=== PATIENT | male | born 1970 | race Caucasian/White ===

== ENCOUNTER 2021-09-25 16:35 | Inpatient (IN) | payer OTHER, SELFPAY ==
[~2021-09-25] VITALS: Ht 167.6 cm; Wt 94.8 kg
[2021-09-25 16:45] VITALS: BP_SYST 149
--- NOTE | 2021-09-25 16:45 | NUR ---
pt. bib ACLS placed on gurney in tent, called 911, pt. is covid + has been seen at [facility] stated called 911 because he keeps having coughing spells and then feels SOB, on EMS arrival O2 sat was 88% on RA, pt arrived with 4L/NC and sat 95%
--- NOTE | 2021-09-25 18:10 | NUR ---
phone update to pts. Mar[facility], pt, could not remember his home med. for HTN. confirmed with takes losartan 50 mg daily
[2021-09-25] MEDS ORDERED: LOSA50TA3 PO (18:30)
--- NOTE | 2021-09-25 18:30 | NUR ---
Medication reconciliation completed with information provided by [facility] patients . Any prior medication reconciliation on file was reviewed and corrected.
--- NOTE | 2021-09-25 18:40 | NUR ---
pt. sat. decreased to 89% post coughing, RR 30, remains on 4L/NC., pt. moved to bed 8, remains hypertensive Dr. Calderon aware, pt. denies pain
--- NOTE | 2021-09-25 18:54 | NUR ---
called RT to come start HIFLO O2 per Dr. Calderon
[2021-09-25 19:21] LABS: CALCIUM 9.3 mg/dL (8.4-11.0); CREATININE 1.72 mg/dL (0.55-1.30); POTASSIUM 3.8 mmol/L (3.5-5.1)
[2021-09-25 19:31] LABS: BASOPHILS % (AUTO) 0.2 % (0.0-2.0); EOSINOPHILS % (AUTO) 0.2 % (0.0-4.0); HEMATOCRIT 57.1 % (36-54); HEMOGLOBIN 18.7 g/dL (14.0-18.0); LYMPHOCYTES # (AUTO) 1.2 K/uL (1.0-5.5); LYMPHOCYTES % (AUTO) 9.7 % (20.5-51.5); MEAN CORPUSCULAR HEMOGLOBIN 30 pg (27-31); MEAN CORPUSCULAR HGB CONC 33 % (32-36); MEAN CORPUSCULAR VOLUME 90 fL (79.0-98.0); MONOCYTES # (AUTO) 0.6 K/uL (0.0-1.0); MONOCYTES % (AUTO) 5.2 % (1.7-9.3); NEUTROPHILS # (AUTO) 10.1 K/uL (1.8-7.7); NEUTROPHILS % (AUTO) 84.7 % (40.0-70.0); PLATELET COUNT (AUTO) 357 K/uL (130-430); RED BLOOD CELL COUNT(AUTO) 6.33 MIL/uL (4.2-6.2); RED CELL DISTRIBUTION WIDTH 13.4 % (9.0-15.0); WHITE BLOOD COUNT (AUTO) 11.9 K/uL (4.8-10.8)
[2021-09-25 19:33] LABS: TOTAL BILIRUBIN 0.6 mg/dL (0.0-1.0)
[2021-09-25 19:36] LABS: INR 0.9 (0.80-1.20); PROTHROMBIN TIME 10.1 SECS (9.5-12.5)
[2021-09-25] MEDS ORDERED: NACL 0.9% 2,000 ML IV ONE (19:45)
[2021-09-25 19:57] LABS: CKMB RELATIVE INDEX 0.7 (0.0-2.9)
--- NOTE | 2021-09-25 20:00 | NUR ---
covid charity swab done at bedside and sent to lab
[2021-09-25] MEDS ORDERED: ONDANSETRON HCL 4 MG/2 ML VIAL IVP ONE (20:15)
[2021-09-25] MEDS ORDERED: ONDANSETRON HCL 4 MG/2 ML VIAL ONE (20:18)
--- NOTE | 2021-09-25 20:43 | NUR ---
Patient will be admitted to care of DR CHARLTON. Admitted to TELE unit. Will go to room TBD. Belongings list completed. Complete and up to date summary report printed. SBAR report to be given at bedside with opportunity for questions.
[2021-09-25] MEDS ORDERED: NACL 0.9% 1,000 ML IV ONE (20:45)
[2021-09-25] MEDS ORDERED: AZITHROMYCIN 250 MG TABLET PO ONE (20:45)
[2021-09-25 20:49] LABS: BILIRUBIN,URINE NEGATIVE (NEGATIVE); COLOR,URINE YELLOW (YELLOW); GLUCOSE,URINE NEGATIVE (NEGATIVE); KETONES,URINE NEGATIVE (NEGATIVE); LEUKOCYTE ESTERASE ,URINE NEGATIVE (NEGATIVE); NITRITE, URINE NEGATIVE (NEGATIVE); PH,URINE 5.5 (5.0-8.0); PROTEIN URINE 2+ (NEGATIVE); UROBILINOGEN,URINE 0.2 (0.2-1.0)
[2021-09-25] MEDS ORDERED: ONDANSETRON HCL 4 MG/2 ML VIAL IVP PRN (21:00)
[2021-09-25] MEDS ORDERED: NALOXONE HCL 0.4 MG/ML AMP (NARCAN) IVP PRN ×2 (21:00)
[2021-09-25] MEDS ORDERED: ZOLPIDEM TARTRATE 5 MG TABLET PO PRN (21:00)
[2021-09-25] MEDS ORDERED: MUPIROCIN 2% TOPICAL OINTMENT 22 GM NS PRN (21:00)
[2021-09-25] MEDS ORDERED: MORPHINE 2 MG/ML INJ. SYRINGE IVP PRN ×2 (21:00)
[2021-09-25] MEDS ORDERED: LORazepam 2 MG/ML VIAL IVP PRN (21:00)
[2021-09-25] MEDS ORDERED: POTASSIUM CHLORIDE 20 MEQ TAB.PRT.SR PO PRN (21:00)
[2021-09-25] MEDS ORDERED: MAGNESIUM SULFATE 50 ML IV PRN (21:00)
[2021-09-25] MEDS ORDERED: DOCUSATE SODIUM 100 MG CAPSULE PO PRN (21:00)
[2021-09-25] MEDS ORDERED: ACETAMINOPHEN 325 MG TABLET PO PRN (21:00)
[2021-09-25] MEDS: DECADRON 4 MG TABLET PO SCH (21:42)
[2021-09-25 21:52] LABS: BLOOD, URINE TRACE (NEGATIVE); CLARITY/URINE SLIGHTLY HAZY (CLEAR)
[2021-09-25 21:54] LABS: C-REACTIVE PROTEIN QUANT 35.6 mg/dL (0-0.5)
[2021-09-25 22:17] LABS: BACTERIA,URINE FEW /HPF (None Seen); MUCUS,URINE None Seen /LPF (None Seen); OTHER CASTS, URINE WBC CASTS 1+ /LPF (None Seen)
--- NOTE | 2021-09-25 23:10 | NUR ---
bedside commode provided, pass stool and patient stated feeling better.
--- NOTE | 2021-09-26 00:09 | NUR ---
rounding done, awake in bed, denies any discomfort at this time, needs attended, will continue to monitor.
[2021-09-26] MEDS: NACL 0.9% 1,000 ML IV SCH ×3 (00:22→17:00)
[2021-09-26] MEDS: METOPROLOL TARTRATE 25 MG TABLET PO SCH ×3 (01:11→20:53)
--- NOTE | 2021-09-26 02:12 | NUR ---
ADMISSION NOTE Received patient from ER via jimenez, received report from [facility]. Patient admitted with diagnosis of covid pneumonia. Patient oriented to hospital routine, call light, toileting and safety-patient verbalized understanding.
--- NOTE | 2021-09-26 02:20 | NUR ---
admitted to room 119b, handover given to stefanie mathew.
--- NOTE | 2021-09-26 02:49 | NUR ---
ADMISSION NOTE Received patient from ER via gurney. Patient admitted with diagnosis of COVID pna . Patient is awake, alert, oriented X . Patient oriented to hospital room, call light, toileting, pain management and safety-teach back done. Call light within reach.Procedures explained .
[2021-09-26 02:55] VITALS: BP_SYST 138
--- NOTE | 2021-09-26 03:47 | NUR ---
CONSULTATION CALLED: CALLED AND TALKED WITH ANKIT AND NOTIFIED ABOUT THE CONSULTATION WITH DR ALFARO
[2021-09-26 04:15] VITALS: BP_SYST 138
--- NOTE | 2021-09-26 07:04 | NUR ---
CONSULTATION PAGED REASON FOR CONSULTATION:COVID PNA WAS CONSULT CALLED?Y PERSON WHO WAS NOTIFIED:DOYLE CONSULTING PHYSICIAN:MARY ADAM SNUFF GRINDER SPECIALTY:PULMONARY SNUFF GRINDER PHONE NUMBER:[phone] [facility]
[2021-09-26 08:37] VITALS: BP_SYST 139
--- NOTE | 2021-09-26 08:37 | NUR ---
OPENING NOTE Received shift report from mold shifter RN. Patient AxOx4 and is resting in bed and respirations remain even and non-labored on 4 L NC. IV is patent and saline-locked. Bed locked in lowest position and call light is within reach. COVID precautions remain in place. Will continue to monitor. Addendum: 09/26/21 at 1357 by Laura Mcclure RN 25 L/min High flow nasal cannula.
[2021-09-26] MEDS ORDERED: AZITHROMYCIN 250 MG TABLET PO SCH (09:00)
[2021-09-26] MEDS ORDERED: ENOXAPARIN SODIUM 40 MG/0.4 ML SYRINGE SUBCUT SCH (09:00)
[2021-09-26 09:32] LABS: CALCIUM 8.4 mg/dL (8.4-11.0); CREATININE 1.09 mg/dL (0.55-1.30); POTASSIUM 4.2 mmol/L (3.5-5.1)
[2021-09-26 09:44] LABS: BASOPHILS % (AUTO) 0.2 % (0.0-2.0); HEMATOCRIT 46.6 % (36-54); HEMOGLOBIN 15.6 g/dL (14.0-18.0); LYMPHOCYTES # (AUTO) 0.9 K/uL (1.0-5.5); LYMPHOCYTES % (AUTO) 9.8 % (20.5-51.5); MEAN CORPUSCULAR HEMOGLOBIN 31 pg (27-31); MEAN CORPUSCULAR HGB CONC 33 % (32-36); MEAN CORPUSCULAR VOLUME 91 fL (79.0-98.0); MONOCYTES # (AUTO) 0.2 K/uL (0.0-1.0); MONOCYTES % (AUTO) 2.5 % (1.7-9.3); NEUTROPHILS # (AUTO) 8.4 K/uL (1.8-7.7); NEUTROPHILS % (AUTO) 87.5 % (40.0-70.0); PLATELET COUNT (AUTO) 333 K/uL (130-430); RED BLOOD CELL COUNT(AUTO) 5.11 MIL/uL (4.2-6.2); RED CELL DISTRIBUTION WIDTH 13.5 % (9.0-15.0); WHITE BLOOD COUNT (AUTO) 9.6 K/uL (4.8-10.8)
[2021-09-26 10:08] LABS: C-REACTIVE PROTEIN QUANT 23.2 mg/dL (0-0.5)
[2021-09-26] MEDS: CHOLECALCIFEROL (VITAMIN D3) 2,000 UNIT TABLET PO SCH (10:22)
[2021-09-26] MEDS: LOSARTAN POTASSIUM 50 MG TABLET (COZAAR) PO SCH (10:22)
[2021-09-26] MEDS: ASCORBIC ACID 500 MG TABLET PO SCH (10:23)
[2021-09-26] MEDS: cefTRIAXone 1 GM in D5W 50 ML IV SCH (10:23)
[2021-09-26 10:44] LABS: ERYTHROCYTE SEDIMENTATION RATE 69 MM/HR (0-15)
[2021-09-26] MEDS: AZITHROMYCIN 250 MG in NS 250 ML IV SCH (11:51)
[2021-09-26 12:00] VITALS: BP_SYST 133
--- NOTE | 2021-09-26 12:00 | NUR ---
ROUNDING Rounding on patient. No signs of pain/respiratory distress. Will continue to monitor.
--- NOTE | 2021-09-26 16:00 | NUR ---
PAIN MEDICATION Patient reported 9/10 pain. Gave pain medication per MD order. (see eMAR). Will continue to monitor.
[2021-09-26 16:29] VITALS: BP_SYST 124
--- NOTE | 2021-09-26 19:01 | NUR ---
CLOSING NOTE Patient AxOx4 currently eating dinner in bed and respirations remain even and non-labored on 25 L/min HFNC. Bed locked in lowest position and call light is within reach. COVID precautions remain in place. All needs met throughout shift. Will endorse to shift mgr RN.
[2021-09-26 20:00] VITALS: BP_SYST 136; BP_SYST 146
--- NOTE | 2021-09-26 20:00 | NUR ---
Received shift report from day shift RN. Patient AxOx4 and is resting in bed and respirations remain even and non-labored on 25L NC. 22g placed on patient left forarm, IV is patent ns 2100. pt vss, saturation in the low 90s. pt denies any pain, except when he takes deep breathes. lung sounds are diminished to mild rhonchi. Bed locked in lowest position and call light is within reach. COVID precautions remain in place. Will continue to monitor.
[2021-09-26] MEDS: DECADRON 4 MG TABLET PO SCH (20:53)
[2021-09-26] MEDS: BUDESONIDE 0.5 MG/2 ML AMPUL.NEB INH SCH (23:01)
[2021-09-27 01:59] VITALS: BP_SYST 146
--- NOTE | 2021-09-27 07:30 | NUR ---
RN OPENING NOTE REPORT WAS ENDORSED BY NIGHT NURSE. PATIENT IS AWAKE AND ALERT SITTING UP IN BED. NO COMPLAINTS AT THIS TIME. CALL LIGHT IS WITH HIM, EDUCATED TO USE FOR ASSISTANCE. NO OTHER NEEDS AT THIS TIME.
[2021-09-27 07:52] VITALS: BP_SYST 143
[2021-09-27] MEDS: BUDESONIDE 0.5 MG/2 ML AMPUL.NEB INH SCH ×2 (09:00→21:00)
[2021-09-27] MEDS ORDERED: ENOXAPARIN SODIUM 40 MG/0.4 ML SYRINGE SUBCUT ONE (10:00)
[2021-09-27] MEDS: cefTRIAXone 1 GM in D5W 50 ML IV SCH (10:00)
--- NOTE | 2021-09-27 10:00 | NUR ---
MEDICATION PATIENT SCHEDULED MEDICATION GIVEN PER ORDER. PATIENT IS AWAKE AND ALERT SITTING IN BED. LINEN CHANGED PER REQUESTED. PROVIDED WITH ICE WATER REQUESTED. PATIENT HAS ALL SAFETY PRECAUTIONS IN PLACE. NO OTHER NEEDS AT THIS TIME.
[2021-09-27] MEDS: LOSARTAN POTASSIUM 50 MG TABLET (COZAAR) PO SCH (10:01)
[2021-09-27] MEDS: ASCORBIC ACID 500 MG TABLET PO SCH (10:01)
[2021-09-27] MEDS: NACL 0.9% 1,000 ML IV SCH ×3 (10:01→22:11)
[2021-09-27] MEDS: METOPROLOL TARTRATE 25 MG TABLET PO SCH ×2 (10:02→22:08)
[2021-09-27] MEDS: CHOLECALCIFEROL (VITAMIN D3) 2,000 UNIT TABLET PO SCH (10:02)
[2021-09-27 12:00] VITALS: BP_SYST 155
[2021-09-27] MEDS: AZITHROMYCIN 250 MG in NS 250 ML IV SCH (12:00)
--- NOTE | 2021-09-27 12:57 | NUR ---
medication patient is eating lunch tolerating well with no nausea. patient educated to wear oxygen. patient educated supervisor conditioning yard light for assistance. call light is with patient. patient has no other complaints at this time. all safety precautions in place
[2021-09-27 13:38] LABS: ALBUMIN 2.1 g/dL (3.4-4.8); CALCIUM 8.4 mg/dL (8.4-11.0); CREATININE 0.97 mg/dL (0.55-1.30); TOTAL BILIRUBIN 0.2 mg/dL (0.0-1.0)
[2021-09-27 13:47] LABS: C-REACTIVE PROTEIN QUANT 6.8 mg/dL (0-0.5)
--- NOTE | 2021-09-27 14:17 | NUR ---
Dietitian Recommendations * Continue regular diet LP, RD Please refer to Nutrition Assessment for details. Addendum: 09/27/21 at [address] Amended: Links added.
--- NOTE | 2021-09-27 17:42 | NUR ---
Medication Patient is awake and alert no signs of any distress, breathing is equal and non labored. Patient educated to use call light for assistance. no other needs at this time. patient is using oxygen. no other needs .
[2021-09-27 17:45] VITALS: BP_SYST 159
--- NOTE | 2021-09-27 19:20 | NUR ---
RN closing note Patient is awake and alert no signs of any distress, breathing is equal and non labored. Patient has call light with him educated to use call light for assistance. Patient has no complaints at this time.
[2021-09-27] MEDS ORDERED: BUDESONIDE 0.5 MG/2 ML AMPUL.NEB INH SCH (21:00)
[2021-09-27 21:26] VITALS: BP_SYST 175
[2021-09-27] MEDS: DECADRON 4 MG TABLET PO SCH (22:08)
[2021-09-27] MEDS: ENOXAPARIN SODIUM 40 MG/0.4 ML SYRINGE SUBCUT SCH (22:09)
[2021-09-27] MEDS: hydrALAZINE HCL 20 MG/ML VIAL IVP PRN (22:09)
[2021-09-28 00:34] VITALS: BP_SYST 158
[2021-09-28 07:43] LABS: BASOPHILS # (AUTO) 0.2 K/uL (0.0-0.2); BASOPHILS % (AUTO) 1.4 % (0.0-2.0); HEMATOCRIT 39.7 % (36-54); HEMOGLOBIN 13.4 g/dL (14.0-18.0); LYMPHOCYTES # (AUTO) 1.3 K/uL (1.0-5.5); LYMPHOCYTES % (AUTO) 10.7 % (20.5-51.5); MEAN CORPUSCULAR HEMOGLOBIN 30 pg (27-31); MEAN CORPUSCULAR HGB CONC 34 % (32-36); MEAN CORPUSCULAR VOLUME 89 fL (79.0-98.0); MONOCYTES # (AUTO) 0.4 K/uL (0.0-1.0); MONOCYTES % (AUTO) 3.5 % (1.7-9.3); NEUTROPHILS # (AUTO) 10.3 K/uL (1.8-7.7); NEUTROPHILS % (AUTO) 84.4 % (40.0-70.0); PLATELET COUNT (AUTO) 368 K/uL (130-430); RED BLOOD CELL COUNT(AUTO) 4.48 MIL/uL (4.2-6.2); RED CELL DISTRIBUTION WIDTH 12.9 % (9.0-15.0); WHITE BLOOD COUNT (AUTO) 12.2 K/uL (4.8-10.8)
[2021-09-28 08:00] VITALS: BP_SYST 153
[2021-09-28] MEDS: BUDESONIDE 0.5 MG/2 ML AMPUL.NEB INH SCH ×2 (08:26→20:59)
[2021-09-28] MEDS: LOSARTAN POTASSIUM 50 MG TABLET (COZAAR) PO SCH (09:17)
[2021-09-28] MEDS: ASCORBIC ACID 500 MG TABLET PO SCH (09:17)
[2021-09-28 09:26] LABS: ALBUMIN 1.9 g/dL (3.4-4.8); CALCIUM 8.3 mg/dL (8.4-11.0); CREATININE 0.78 mg/dL (0.55-1.30); POTASSIUM 4.2 mmol/L (3.5-5.1); TOTAL BILIRUBIN 0.3 mg/dL (0.0-1.0)
[2021-09-28] MEDS: METOPROLOL TARTRATE 25 MG TABLET PO SCH ×2 (09:27→21:00)
[2021-09-28] MEDS: CHOLECALCIFEROL (VITAMIN D3) 2,000 UNIT TABLET PO SCH (09:28)
[2021-09-28] MEDS: ENOXAPARIN SODIUM 40 MG/0.4 ML SYRINGE SUBCUT SCH ×2 (09:30→21:00)
[2021-09-28] MEDS: cefTRIAXone 1 GM in D5W 50 ML IV SCH (09:38)
[2021-09-28 11:02] LABS: C-REACTIVE PROTEIN QUANT 3.1 mg/dL (0-0.5)
[2021-09-28 12:00] VITALS: BP_SYST 140
[2021-09-28 12:20] LABS: ERYTHROCYTE SEDIMENTATION RATE 48 MM/HR (0-15)
[2021-09-28] MEDS: AZITHROMYCIN 250 MG in NS 250 ML IV SCH (15:01)
[2021-09-28] MEDS: NACL 0.9% 1,000 ML IV SCH ×2 (15:08→20:23)
[2021-09-28 16:00] VITALS: BP_SYST 144
[2021-09-28 20:44] VITALS: BP_SYST 159
[2021-09-28] MEDS: DECADRON 4 MG TABLET PO SCH (21:00)
[2021-09-29] VITALS (8 sets, daily range): BP systolic 138–158
[2021-09-29] MEDS: NACL 0.9% 1,000 ML IV SCH ×2 (05:31→14:13)
[2021-09-29 07:27] LABS: BASOPHILS # (AUTO) 0.1 K/uL (0.0-0.2); BASOPHILS % (AUTO) 0.5 % (0.0-2.0); HEMATOCRIT 40.9 % (36-54); HEMOGLOBIN 13.6 g/dL (14.0-18.0); LYMPHOCYTES # (AUTO) 1.3 K/uL (1.0-5.5); LYMPHOCYTES % (AUTO) 10.2 % (20.5-51.5); MEAN CORPUSCULAR HEMOGLOBIN 29 pg (27-31); MEAN CORPUSCULAR HGB CONC 33 % (32-36); MEAN CORPUSCULAR VOLUME 88 fL (79.0-98.0); MONOCYTES # (AUTO) 0.6 K/uL (0.0-1.0); MONOCYTES % (AUTO) 4.7 % (1.7-9.3); NEUTROPHILS % (AUTO) 84.6 % (40.0-70.0); PLATELET COUNT (AUTO) 379 K/uL (130-430); RED BLOOD CELL COUNT(AUTO) 4.63 MIL/uL (4.2-6.2); RED CELL DISTRIBUTION WIDTH 13.2 % (9.0-15.0); WHITE BLOOD COUNT (AUTO) 12.9 K/uL (4.8-10.8)
[2021-09-29 07:57] LABS: ALBUMIN 1.9 g/dL (3.4-4.8); CALCIUM 7.9 mg/dL (8.4-11.0); CREATININE 0.7 mg/dL (0.55-1.30); POTASSIUM 4.2 mmol/L (3.5-5.1); TOTAL BILIRUBIN 0.4 mg/dL (0.0-1.0)
--- NOTE | 2021-09-29 08:00 | NUR ---
AWAKE, ALERT, ORIENTED X 4 TO NAME, PERSON, PLACE, AND TIME. RESPIRATION EVEN AND UNLABORED NO S/S OF ANY ACUTE DISTRESS NOTED. ABLE TO VERBALIZE NEEDS NO C/O ANY PAIN OR DISCOMFORT NOTED. ABDOMEN SOFT AND NON-DISTENDED, POSITIVE BOWEL SOUND X 4 NO N/V OR DIARRHEA NOTED. SKIN WARM AND DRY INTACT NO REDNESS OR EDEMA NOTED. WILLL CONTINUE TO REASSESS PATIENT PRN.
[2021-09-29] MEDS: METOPROLOL TARTRATE 25 MG TABLET PO SCH ×2 (08:43→20:45)
[2021-09-29] MEDS: CHOLECALCIFEROL (VITAMIN D3) 2,000 UNIT TABLET PO SCH (08:44)
[2021-09-29] MEDS: ASCORBIC ACID 500 MG TABLET PO SCH (08:44)
[2021-09-29] MEDS: LOSARTAN POTASSIUM 50 MG TABLET (COZAAR) PO SCH (08:45)
[2021-09-29] MEDS: ENOXAPARIN SODIUM 40 MG/0.4 ML SYRINGE SUBCUT SCH ×2 (08:46→20:47)
[2021-09-29] MEDS: BUDESONIDE 0.5 MG/2 ML AMPUL.NEB INH SCH ×2 (09:00→21:00)
[2021-09-29 09:02] LABS: C-REACTIVE PROTEIN QUANT 1.4 mg/dL (0-0.5)
[2021-09-29] MEDS: cefTRIAXone 1 GM in D5W 50 ML IV SCH (09:20)
[2021-09-29] MEDS: AZITHROMYCIN 250 MG in NS 250 ML IV SCH (11:40)
[2021-09-29 12:50] LABS: ERYTHROCYTE SEDIMENTATION RATE 23 MM/HR (0-15)
--- NOTE | 2021-09-29 15:00 | NUR ---
STABLE, NO ADVERSE REACTION FROM MEDICATION REGIMENT NOTED. WILL CONTINUE TO REASSESS PRN.
--- NOTE | 2021-09-29 18:59 | NUR ---
TOLERATED PO WELL WITH GOOD APPETITE, ABLE TO WEAN DOWN O2 FIO2 TO NASAL CANNULA, NO S/S OF RESPIRATORY DISTRESS NOTED. WILL ENDORSEDD TO PM SHIFT NURSE.
--- NOTE | 2021-09-29 20:00 | NUR ---
Received pt up in bed, verbally responsive and able to make needs known. A/O X4. Denies any pain/discomfort at this time. NS running @ 100cc/hr and tolerating well. Pt continues on 3 lpm via NC with o2 sat WNL. No signs of respiratory distress noted. Will monitor for any changes.
[2021-09-29] MEDS: DECADRON 4 MG TABLET PO SCH (20:45)
[2021-09-30 00:29] VITALS: BP_SYST 147
[2021-09-30] MEDS: NACL 0.9% 1,000 ML IV SCH (02:06)
[2021-09-30 06:02] VITALS: BP_SYST 136
[2021-09-30 08:00] VITALS: BP_SYST 137
[2021-09-30] MEDS: ASCORBIC ACID 500 MG TABLET PO SCH (09:11)
[2021-09-30] MEDS: METOPROLOL TARTRATE 25 MG TABLET PO SCH ×2 (09:11→21:18)
[2021-09-30] MEDS: DECADRON 4 MG TABLET PO SCH (09:12)
[2021-09-30] MEDS: LOSARTAN POTASSIUM 50 MG TABLET (COZAAR) PO SCH (09:17)
[2021-09-30] MEDS: CHOLECALCIFEROL (VITAMIN D3) 2,000 UNIT TABLET PO SCH (09:19)
[2021-09-30] MEDS: ENOXAPARIN SODIUM 40 MG/0.4 ML SYRINGE SUBCUT SCH ×2 (09:21→21:23)
[2021-09-30 10:00] VITALS: BP_SYST 137
[2021-09-30 10:07] LABS: BASOPHILS # (AUTO) 0.1 K/uL (0.0-0.2); BASOPHILS % (AUTO) 0.4 % (0.0-2.0); EOSINOPHILS % (AUTO) 0.1 % (0.0-4.0); HEMATOCRIT 43.4 % (36-54); HEMOGLOBIN 14.5 g/dL (14.0-18.0); LYMPHOCYTES # (AUTO) 1.7 K/uL (1.0-5.5); LYMPHOCYTES % (AUTO) 13.2 % (20.5-51.5); MEAN CORPUSCULAR HEMOGLOBIN 30 pg (27-31); MEAN CORPUSCULAR HGB CONC 33 % (32-36); MONOCYTES # (AUTO) 0.5 K/uL (0.0-1.0); MONOCYTES % (AUTO) 3.8 % (1.7-9.3); NEUTROPHILS # (AUTO) 10.5 K/uL (1.8-7.7); NEUTROPHILS % (AUTO) 82.5 % (40.0-70.0); PLATELET COUNT (AUTO) 404 K/uL (130-430); RED BLOOD CELL COUNT(AUTO) 4.84 MIL/uL (4.2-6.2); RED CELL DISTRIBUTION WIDTH 13.1 % (9.0-15.0); WHITE BLOOD COUNT (AUTO) 12.8 K/uL (4.8-10.8)
[2021-09-30] MEDS: cefTRIAXone 1 GM in D5W 50 ML IV SCH (10:07)
[2021-09-30 10:30] LABS: MEAN CORPUSCULAR VOLUME 90 fL (79.0-98.0)
[2021-09-30 10:31] LABS: ALBUMIN 2.1 g/dL (3.4-4.8); CALCIUM 7.9 mg/dL (8.4-11.0); CREATININE 0.7 mg/dL (0.55-1.30); POTASSIUM 4.1 mmol/L (3.5-5.1); TOTAL BILIRUBIN 0.4 mg/dL (0.0-1.0)
[2021-09-30 10:45] LABS: C-REACTIVE PROTEIN QUANT 1.3 mg/dL (0-0.5)
[2021-09-30 11:31] LABS: ERYTHROCYTE SEDIMENTATION RATE 34 MM/HR (0-15)
[2021-09-30] MEDS: AZITHROMYCIN 250 MG in NS 250 ML IV SCH (11:45)
[2021-09-30 12:00] VITALS: BP_SYST 132
--- NOTE | 2021-09-30 15:12 | NUR ---
0800: AWAKE, ALERT, ORIENTED X 4 TO NAME, PERSON, PLACE, AND TIME. RESPIRATION EVEN AND UNLABORED NO S/S OF ANY ACUTE DISTRESS NOTED. ABLE TO VERBALIZE NEEDS NO C/O ANY PAIN OR DISCOMFORT NOTED. ABDOMEN SOFT AND NON-DISTENDED, POSITIVE BOWEL SOUND X 4 NO N/V OR DIARRHEA NOTED. SKIN WARM AND DRY INTACT NO REDNESS OR EDEMA NOTED. TOLERATED PO WELL WITH GOOD APPETITE. 0930: SAW PATIENT AND PLAN TO DC'D HOME TOMORROW POST COMPLETION OF ANTIVIRAL MEDICATION.
--- NOTE | 2021-09-30 16:28 | NUR ---
CM: Per dr Wolfe, plan dc home tomorrow, am labs, UAcx is negative, weaning O2 to 2L this pm, Wbc 12.8, DD 866.
--- NOTE | 2021-09-30 19:41 | NUR ---
opening note Received patient awake resting in bed, no distress on NC. He is watching t.v. and using his phone. IVF infusing via IV to lLFA. Bed is locked in lowest position, side rails up, urinal at bedside.
--- NOTE | 2021-09-30 19:45 | NUR ---
REMAINED STABLE, NO CHANGE IN LOC. NO ADVERSE REACTION FROM CURRENT MEDICATION REGIMENT NOTED. ENDORSED PATIENT TO PM SHIFT NURSE.
[2021-09-30 20:20] VITALS: BP_SYST 183
[2021-10-01 00:44] VITALS: BP_SYST 162
[2021-10-01] MEDS: hydrALAZINE HCL 20 MG/ML VIAL IVP PRN (00:59)
[2021-10-01] MEDS: NACL 0.9% 1,000 ML IV SCH ×3 (01:00→16:44)
[2021-10-01 08:00] VITALS: BP_SYST 141
[2021-10-01] MEDS ORDERED: APIX2.5T PO (08:13)
[2021-10-01] MEDS ORDERED: DEXA6TAB5 PO (08:13)
--- NOTE | 2021-10-01 08:41 | NUR ---
DC planning: Received md order for home 02 at 2L if unable to wean off 02--nurse Stone made aware of order and he will attempt weaning pt off 02 at 3L/NC and update me..Per Stone, current bp is 141/94--[address] [facility] fax#[phone] to inquire which dme vendors are contracted for home 02---[employer] [facility]
[2021-10-01] MEDS: ASCORBIC ACID 500 MG TABLET PO SCH (08:57)
[2021-10-01] MEDS: CHOLECALCIFEROL (VITAMIN D3) 2,000 UNIT TABLET PO SCH (08:57)
[2021-10-01] MEDS: METOPROLOL TARTRATE 25 MG TABLET PO SCH ×2 (08:58→21:29)
[2021-10-01] MEDS: cefTRIAXone 1 GM in D5W 50 ML IV SCH (08:58)
[2021-10-01] MEDS: LOSARTAN POTASSIUM 50 MG TABLET (COZAAR) PO SCH (08:58)
[2021-10-01] MEDS: ENOXAPARIN SODIUM 40 MG/0.4 ML SYRINGE SUBCUT SCH ×2 (08:59→21:30)
[2021-10-01 09:26] LABS: ALBUMIN 2.1 g/dL (3.4-4.8); CALCIUM 7.9 mg/dL (8.4-11.0); CREATININE 0.74 mg/dL (0.55-1.30); POTASSIUM 3.7 mmol/L (3.5-5.1); TOTAL BILIRUBIN 0.4 mg/dL (0.0-1.0)
[2021-10-01 10:10] LABS: C-REACTIVE PROTEIN QUANT 0.6 mg/dL (0-0.5)
[2021-10-01 12:00] VITALS: BP_SYST 131
--- NOTE | 2021-10-01 15:06 | NUR ---
Discharge Planning: DCP faxed pt referral to [facility] [phone]. DCP to follow up
--- NOTE | 2021-10-01 15:14 | NUR ---
Case mgt: I s/w Gabbie at [facility] discharge planning at [phone]--she emailed me [facility] link for DME for contracted vendors for --Our dc coordinator here (Gabbie) is faxing to [facility] the orders.
[2021-10-01 16:00] VITALS: BP_SYST 142
--- NOTE | 2021-10-01 16:24 | NUR ---
Case mgt: [facility] manager field services assigned is Kike at [phone]
--- NOTE | 2021-10-01 16:45 | NUR ---
IV access infiltrated patient refused IV insertion and verbalize that he has been poke at least 7 times yesterday and he said that if my oxygen is available i'm supposed to be home right now. remdesivir was not given because IV access is not available. notified.
--- NOTE | 2021-10-01 17:29 | NUR ---
Dr. bergeron called at 1725 and told me that it is ok not to give last dose of remdesivir if patient is refusing and if no IV access.
--- NOTE | 2021-10-01 19:50 | NUR ---
Opening note late entry d/t patient care Received patient awake resting in bed, no distress on 2L NC. He is watching t.v. and talking on phone. No IV access and informed will be going home, thus don't need. Had dinner, good appetite, denies pain. Bed is locked in lowest position, side rails up 2x. Updated board .
[2021-10-01 20:10] VITALS: BP_SYST 147
[2021-10-01] MEDS: BUDESONIDE 0.5 MG/2 ML AMPUL.NEB INH SCH (21:16)
[2021-10-01] MEDS: DECADRON 4 MG TABLET PO SCH (21:28)
[2021-10-02 00:30] VITALS: BP_SYST 137
--- NOTE | 2021-10-02 08:00 | NUR ---
Opening Notes: Pt is A/Ox4, watching tv in bed. No s/s of respiratory or cardiac distress. No IV access. Ate breakfast. Will continue to monitor.
[2021-10-02] MEDS: BUDESONIDE 0.5 MG/2 ML AMPUL.NEB INH SCH (09:00)
[2021-10-02] MEDS: CHOLECALCIFEROL (VITAMIN D3) 2,000 UNIT TABLET PO SCH (09:36)
[2021-10-02] MEDS: ASCORBIC ACID 500 MG TABLET PO SCH (09:37)
[2021-10-02] MEDS: METOPROLOL TARTRATE 25 MG TABLET PO SCH (09:37)
[2021-10-02] MEDS: LOSARTAN POTASSIUM 50 MG TABLET (COZAAR) PO SCH (09:37)
[2021-10-02] MEDS: ENOXAPARIN SODIUM 40 MG/0.4 ML SYRINGE SUBCUT SCH (09:38)
[2021-10-02 10:44] LABS: ALBUMIN 1.9 g/dL (3.4-4.8); CALCIUM 7.6 mg/dL (8.4-11.0); CREATININE 0.75 mg/dL (0.55-1.30); TOTAL BILIRUBIN 0.3 mg/dL (0.0-1.0)
[2021-10-02 10:45] VITALS: BP_SYST 136
--- NOTE | 2021-10-02 11:45 | NUR ---
D/C Patient Patient given medication reconciliation form and D/C instructions. Exit Care provided. Patient verbalized understanding. MD discussed with patient the results and treatment provided. Ambulatory with steady gait for discharge to home. Patient in stable condition, ID band removed. Rx already picked up by family. Patient educated on pain management. All belongings sent with patient.
== END 2021-10-02 11:45 | disposition home or self-care (01) | DRG 871 ==
LOC: SED 16:35 → STU 20:41
PROVIDERS: ADMIT General Practice; ATTEND General Practice
PROC: 5A0935A Assistance with Respiratory Ventilation, Less than 24 Consecutive Hours, High Flow/Velocity Cannula (ICD-10-PCS; principal; 2021-09-26)
PROC: 5A0945A Assistance with Respiratory Ventilation, 24-96 Consecutive Hours, High Flow/Velocity Cannula (ICD-10-PCS; 2021-09-27)
PROC: XW033E5 Introduction of Remdesivir Anti-infective into Peripheral Vein, Percutaneous Approach, New Technology Group 5 (ICD-10-PCS; 2021-09-28)
PROC: 5A0935A Assistance with Respiratory Ventilation, Less than 24 Consecutive Hours, High Flow/Velocity Cannula (ICD-10-PCS; 2021-09-29)
DX: A41.89 Other specified sepsis (principal); U07.1 COVID-19; J12.82 Pneumonia due to coronavirus disease 2019; N17.0 Acute kidney failure with tubular necrosis; J96.01 Acute respiratory failure with hypoxia; E44.1 Mild protein-calorie malnutrition; E87.2 Acidosis; N39.0 Urinary tract infection, site not specified; F17.210 Nicotine dependence, cigarettes, uncomplicated; E66.9 Obesity, unspecified; J10.1 Influenza due to other identified influenza virus with other respiratory manifestations; R13.10 Dysphagia, unspecified; I10 Essential (primary) hypertension; Z68.33 Body mass index [BMI] 33.0-33.9, adult; Z86.73 Personal history of transient ischemic attack (TIA), and cerebral infarction without residual deficits
CPT/HCPCS: 36415; 71045; 80048; 80053; 81000; 82550; 82553; 83036; 83605; 83615; 83735; 83880; 84484; 85025; 85379; 85610-TC; 85651-TC; 85730-TC; 86140; 87040; 87086; 93005; 94640; 94760; 99285; G0378; J0360; J0456; J0696; J1650; J2270; J2405; J7050; J7060; J7626; J8540; Q0144